=== PATIENT | female | born 1995 | race Caucasian/White ===

== ENCOUNTER → 2024-07-02 06:54 | Outpatient (REF) | payer OTHER, SELFPAY | LOC: PNTC 06:54 | PROVIDERS: ATTENDING PHYSICIAN Obstetrics & Gynecology | DX: Z36.0 Encounter for antenatal screening for chromosomal anomalies (principal); Z36.82 Encounter for antenatal screening for nuchal translucency | CPT/HCPCS: 36415; 76801; 76813 ==

== ENCOUNTER → 2024-10-22 07:29 | Outpatient (REF) | payer OTHER, SELFPAY | LOC: PNTC 07:29 | PROVIDERS: ATTENDING PHYSICIAN Obstetrics & Gynecology | DX: O76 Abnormality in fetal heart rate and rhythm complicating labor and delivery (principal); O36.8390 Maternal care for abnormalities of the fetal heart rate or rhythm, unspecified trimester, not applicable or unspecified | CPT/HCPCS: 59025; 76815 ==

== ENCOUNTER → 2024-10-28 17:00 | Outpatient (REF) | payer OTHER, SELFPAY | LOC: PNTC 17:00 | PROVIDERS: ATTENDING PHYSICIAN Obstetrics & Gynecology | DX: O76 Abnormality in fetal heart rate and rhythm complicating labor and delivery (principal); O36.8390 Maternal care for abnormalities of the fetal heart rate or rhythm, unspecified trimester, not applicable or unspecified | CPT/HCPCS: 59025; 76815 ==

== ENCOUNTER 2024-10-28 18:50 | Observation (INO) | payer OTHER, SELFPAY ==
[2024-10-28 19:10] VITALS: BP 127/66; BMI 28.3
[2024-10-29] MEDS: LR 1000 IV ×2 (01:21→04:00)
[2024-10-29] MEDS: CELESTONE SOLUSPAN 2 MG IM (02:41)
[2024-10-29 03:29] LABS: % Basophils 0.7 % (0-2); % Eosinophils 0.9 % (0-6); % Immature Granulocytes 3.8 % (0-0.5); % Lymphocytes 20.6 % (20.5-51.1); % Monocytes 7.1 % (1.7-9.3); % Neutrophils 66.9 % (42.2-75.2); Absolute Basophils 0.1 10^3/uL (0-0.2); Absolute Eosinophils 0.1 10^3/uL (0-0.7); Absolute Immature Granulocytes 0.4 10^3/uL (0-0.05); Absolute Lymphocytes 2.1 10^3/uL (1.2-3.4); Absolute Monocytes 0.7 10^3/uL (0.1-0.6); Absolute Neutrophils 6.8 10^3/uL (1.4-6.5); Hematocrit 34.1 % (37.0-47.0); Hemoglobin 12.2 g/dL (12.0-16.0); Mean Corp Hgb Conc. 35.8 g/dL (33.0-37.0); Mean Corpuscular Hgb 34.5 pg (27.0-31.0); Mean Corpuscular Volume 96.3 fL (81.0-99.0); Mean Platelet Volume 10.6 fL (7.4-10.4); Nucleated Red Blood Cells % 0 %; Platelet Count 164 10^3/uL (130-400); Red Blood Cell Count 3.54 10^6/uL (4.20-5.40); Red Cell Dist. Width 12.4 % (11.5-14.5); White Blood Cell Count 10.1 10^3/uL (4.8-10.8)
== END 2024-10-29 10:40 | disposition home or self-care (01) ==
LOC: LDRP 18:50
PROVIDERS: ADMITTING PHYSICIAN Obstetrics & Gynecology
DX: O36.8330 Maternal care for abnormalities of the fetal heart rate or rhythm, third trimester, not applicable or unspecified (principal); O35.BXX0 Maternal care for other (suspected) fetal abnormality and damage, fetal cardiac anomalies, not applicable or unspecified; Z3A.30 30 weeks gestation of pregnancy
CPT/HCPCS: 85025; 86850; 86900; 86901

== ENCOUNTER 2024-10-29 21:51 | Observation (INO) | payer OTHER, SELFPAY ==
[2024-10-29 22:08] VITALS: BP 113/63; BMI 28.3
[2024-10-29] MEDS: CELESTONE SOLUSPAN 2 MG IM (22:18)
== END 2024-10-29 22:39 | disposition short-term general hospital (02) ==
LOC: LDRP 21:51
PROVIDERS: ADMITTING PHYSICIAN Obstetrics & Gynecology
DX: O36.8330 Maternal care for abnormalities of the fetal heart rate or rhythm, third trimester, not applicable or unspecified (principal); Z3A.30 30 weeks gestation of pregnancy
CPT/HCPCS: G0378

== ENCOUNTER 2024-11-21 12:54 | Observation (INO) | payer OTHER, SELFPAY ==
[2024-11-21 13:06] VITALS: BP 114/60; BMI 28.3
== END 2024-11-21 16:32 | disposition home or self-care (01) ==
LOC: LDRP 12:54
PROVIDERS: ADMITTING PHYSICIAN Obstetrics & Gynecology
DX: O47.03 False labor before 37 completed weeks of gestation, third trimester (principal); Z3A.34 34 weeks gestation of pregnancy; R10.9 Unspecified abdominal pain
CPT/HCPCS: 59025; G0378

== ENCOUNTER 2024-12-25 18:50 | Inpatient (IN) | payer OTHER, SELFPAY ==
[2024-12-25 19:01] VITALS: BMI 30.8
[2024-12-25] MEDS: LR 1000 IV ×2 (19:25→21:06)
[2024-12-25 20:12] VITALS: BP 116/72
[2024-12-25 20:32] LABS: % Basophils 0.4 % (0-2); % Eosinophils 0.3 % (0-6); % Immature Granulocytes 1.6 % (0-0.5); % Lymphocytes 14.6 % (20.5-51.1); % Monocytes 5.6 % (1.7-9.3); % Neutrophils 77.5 % (42.2-75.2); Absolute Basophils 0.1 10^3/uL (0-0.2); Absolute Immature Granulocytes 0.2 10^3/uL (0-0.05); Absolute Lymphocytes 2.1 10^3/uL (1.2-3.4); Absolute Monocytes 0.8 10^3/uL (0.1-0.6); Absolute Neutrophils 11.3 10^3/uL (1.4-6.5); Hematocrit 35.8 % (37.0-47.0); Hemoglobin 13.3 g/dL (12.0-16.0); Mean Corp Hgb Conc. 37.2 g/dL (33.0-37.0); Mean Corpuscular Hgb 34.5 pg (27.0-31.0); Mean Corpuscular Volume 92.7 fL (81.0-99.0); Mean Platelet Volume 11.2 fL (7.4-10.4); Nucleated Red Blood Cells % 0 %; Platelet Count 198 10^3/uL (130-400); Red Blood Cell Count 3.86 10^6/uL (4.20-5.40); Red Cell Dist. Width 12.2 % (11.5-14.5); White Blood Cell Count 14.6 10^3/uL (4.8-10.8)
[2024-12-25] MEDS: FENTANYL/BUPIVACAINE 100 EPIDURAL (20:42)
[2024-12-25] MEDS: SUBLIMAZE 100 MCG EPIDURAL (20:42)
[2024-12-25 21:51] LABS: Amphetamines Negative (Negative); Barbiturates Negative (Negative); Benzodiazepines Negative (Negative); Buprenorphine Negative (Negative); Cocaine Negative (Negative); Marijuana Negative (Negative); Methadone Negative (Negative); Methamphetamines Negative (Negative); Opiates Negative (Negative); Phencyclidine Negative (Negative); Tricyclic Antidepressants Negative (Negative)
[2024-12-26] MEDS: LR 1000 IV (00:27)
[2024-12-26] MEDS: ZOFRAN 4 MG IV (03:53)
[2024-12-26] MEDS: FENTANYL/BUPIVACAINE 100 EPIDURAL ×2 (05:38→14:01)
[2024-12-26] MEDS: PITOCIN 30 UNITS/NSS 500 ML IV (07:35)
[2024-12-26] MEDS: TUMS CHEWABLE TABLET 400 MG PO (09:17)
[2024-12-26] MEDS: TRANEXAMIC ACID 100 IV (17:20)
[2024-12-26] MEDS: METHERGINE INJECTION 0.2 MG IM (17:47)
[2024-12-26] MEDS: TYLENOL 650 MG PO ×2 (18:03→22:26)
[2024-12-26] MEDS: MOTRIN 600 MG PO (22:26)
[2024-12-27 05:45] LABS: Hematocrit 31.9 % (37.0-47.0); Hemoglobin 11.6 g/dL (12.0-16.0)
[2024-12-27] MEDS: PRENATAL PLUS 1 TABLET PO (09:21)
[2024-12-27] MEDS: SENOKOT-S 1 TABLET PO (09:21)
[2024-12-27] MEDS: TYLENOL 650 MG PO ×3 (09:21→21:56)
[2024-12-27] MEDS: MOTRIN 600 MG PO ×2 (15:42→21:57)
[2024-12-27] MEDS: LOVENOX 40 MG SC (18:02)
[2024-12-27] MEDS: MYLICON 80 MG PO (20:32)
[2024-12-28] MEDS: TYLENOL 650 MG PO ×2 (06:01→11:54)
[2024-12-28] MEDS: MOTRIN 600 MG PO ×2 (06:02→11:53)
[2024-12-28] MEDS: PRENATAL PLUS 1 TABLET PO (09:01)
[2024-12-28] MEDS: SENOKOT-S 1 TABLET PO (09:28)
[2024-12-28] MEDS: MYLICON 80 MG PO (09:28)
--- NOTE | 2024-12-28 15:41 | CON.ONC ---
Impression
Impression
post-
Factor V Leiden heterozygous - no personal h/o VTE
Plan
Plan
1. Factor V Leiden heterozygosity w/ no prior h/o thrombosis - now post-.
Reviewed the [employer] Guidelines regarding management of thrombophilia in . As per the [employer] Guidelines - for women w/ low risk thrombophilia and no prior h/o VTE, who have a
positive family history of VTE, post- prophylaxis w/ prophylactic dose low molecular weight heparin (LMWH) would be recommended for 6 weeks.
This recommendation was discussed w/ the patient in detail including potential risks and benefits of prophylactic LMWH, including the potential increased risk for bleeding. After discussion, the patient expressed an understanding and willingness to
proceed. She has received one dose of lovenox 40mg yesterday. It would be recommended that lovenox 40mg sc daily be continued for 6 weeks in the post- period for potential risk reduction of VTE complications.
The patient has previously met w/ Dr. Givens in consultation as an outpt and will call our office w/ questions, as needed.
Patient History
History of Present Illness
29y/o female seen in hematology consultation today regarding heterozygous Factor V Leiden mutation.
The patient is now post-, following delivery on 12/26/24.
She apparently has a h/o Factor V Leiden heterozygosity, diagnosed due to a positive family history, w/ her father having a h/o multiple VTE events w/ this genetic polymorphism.
The patient has not had any prior VTE events.
She is feeling decent today. No new SOB, chest pain, palpitations, LE edema or pain.
Past-Medical/Surgical History
PMH:
FVL heterozygous - no prior VTE
PSH: none
SH: former tobacco user, no ETOH
FH: father w/ h/o thrombosis and FVL
[place]erge[place]: NKDA
Patient Medication
�Medication �Instructions �Recorded �Confirmed �Last Taken �Type
prenat.vits,jb,[id number] 1 tab PO DAILY Supplement 10/28/24 12/25/24 12/25/24 08:00 History
acetaminophen 325 mg tablet 650 mg (2 x 325 mg) PO Q4HPRN PRN 12/28/24 Unknown Rx
mild pain #0 tabs
calcium carbonate (Calcium Antacid) 400 mg (2 x 200 mg calcium (500 12/28/24 Unknown Rx
mg)) PO Q6HPRN PRN indigestion #0
tabs
enoxaparin 40 mg/0.4 mL 40 mg (0.4 mL) SC QPM #41 mL 12/28/24 Unknown Rx
subcutaneous syringe
ibuprofen 600 mg tablet 600 mg PO Q6HPRN PRN moderate 12/28/24 Unknown Rx
pain/cramps #30 tabs
sennosides 8.6 mg-docusate sodium 1 tab PO DAILYPRN PRN constipation 12/28/24 Unknown Rx
50 mg tablet #0 tabs
simethicone 80 mg chewable tablet 80 mg PO Q6H PRN gas #0 tabs 12/28/24 Unknown Rx
Review of Systems
-
A ROS was obtained w/ pertinent findings as per HPI.
Physical Exam
-
General: Well Developed and No Apparent Distress
HEENT: Negative Jaundice
Cardiology: Normal Sinus Rhythm
Pulmonary: Clear
Extremities: Negative Edema
Neurology: Non Focal
Labs
Lab Results
WBC 14.6 10^3/uL (4.8-10.8) H 12/25/24 19:31
RBC 3.86 10^6/uL (4.20-5.40) L 12/25/24 19:31
Hgb 11.6 g/dL (12.0-16.0) L 12/27/24 05:09
Hct 31.9 % (37.0-47.0) L 12/27/24 05:09
MCV 92.7 fL (81.0-99.0) 12/25/24:
MCH 34.5 pg (27.0-31.0) H 12/25/24:
MCHC 37.2 g/dL (33.0-37.0) H 12/25/24
RDW 12.2 % (11.5-14.5) 12/25/24
Plt Count 198 10^3/uL (130-400) 12/25/24
MPV 11.2 fL (7.4-10.4) H 12/25/24
Abs Immat Gran (auto) 0.2 10^3/uL (0-0.05) H 12/25/24
Absolute Neuts (auto) 11.3 10^3/uL (1.4-6.5) H 12/25/24
Absolute Lymphs (auto) 2.1 10^3/uL (1.2-3.4) 12/25/24
Absolute Monos (auto) 0.8 10^3/uL (0.1-0.6) H 12/25/24
Absolute Eos (auto) 0.0 10^3/uL (0-0.7) 12/25/24
Absolute Basos (auto) 0.1 10^3/uL (0-0.2) 12/25/24
Immature Gran % 1.6 % (0-0.5) H 12/25/24
Neutrophils % 77.5 % (42.2-75.2) H 12/25/24
Lymphocytes % 14.6 % (20.5-51.1) L 12/25/24
Monocytes % 5.6 % (1.7-9.3) 12/25/24
Eosinophils % 0.3 % (0-6) 12/25/24
Basophils % 0.4 % (0-2) 12/25/24 19:31
Vital Signs
Vital Signs
Temp Pulse Resp BP
98.1 F 93 18 116/72
12/25/24 20:12 12/25/24 20:12 12/25/24 20:12 12/25/24 20:12
[2024-12-30 13:20] LABS: Syphilis/T. pallidum Ab Reflex Negative (Negative)
== END 2024-12-28 14:44 | disposition home or self-care (01) | DRG 806 ==
LOC: LDRP 18:50
PROVIDERS: Obstetrics & Gynecology; ADMITTING PHYSICIAN Obstetrics & Gynecology; CONSULT PHYSICIAN Internal Medicine Hematology & Oncology
PROC: 10907ZC Drainage of Amniotic Fluid, Therapeutic from Products of Conception, Via Natural or Artificial Opening (ICD-10-PCS; 2024-12-26)
PROC: 0KQM0ZZ Repair Perineum Muscle, Open Approach (ICD-10-PCS; 2024-12-26)
PROC: 10E0XZZ Delivery of Products of Conception, External Approach (ICD-10-PCS; 2024-12-26)
PROC: 0UQMXZZ Repair Vulva, External Approach (ICD-10-PCS; 2024-12-26)
DX: O67.0 Intrapartum hemorrhage with coagulation defect (principal); D68.51 Activated protein C resistance; Z37.0 Single live birth; O70.1 Second degree perineal laceration during delivery; Z3A.39 39 weeks gestation of pregnancy; Z87.440 Personal history of urinary (tract) infections; Z83.2 Family history of diseases of the blood and blood-forming organs and certain disorders involving the immune mechanism; Z87.891 Personal history of nicotine dependence
CPT/HCPCS: 80306; 85014; 85018; 85025; 86780; 86850; 86900; 86901